=== PATIENT | female | born 1950 | race Caucasian/White ===

== ENCOUNTER 2018-09-06 10:50 | Day surgery (SDC) | payer BC, MEDICARE ==
[~2018-09-06] VITALS: Ht 157.5 cm; Wt 69.4 kg
[~2018-09-06 10:50] MED LIST: CAR3125T PO; FEXO24TA9 PO; FLUT1SPR5; GLIP-115 PO; INSUINJ37 SC; LOSA-46 PO; OME20T PO; PRAV20TA3 PO; SERT-160 PO; TRAZ50TA2 PO
[2018-09-06] MEDS ORDERED: IOHEXOL 350 MG/ML 100ML IJ ONE (11:13)
[2018-09-06] MEDS ORDERED: LIDOCAINE 2%HCL (LOCAL ANESTH.) INJ 20ML MDV ONE (11:13)
[2018-09-06] MEDS ORDERED: ANGIOMAX 250 MG VIAL IV ONE (12:26)
[2018-09-06] MEDS ORDERED: MIDAZOLAM HCL 1MG/1ML-2 ML VIAL ONE (12:27)
[2018-09-06] MEDS ORDERED: SODIUM CHL 0.9% 0 ML ONE (12:27)
[2018-09-06] MEDS ORDERED: fentaNYL CITRATE 100 MCG/2 ML VL ONE (12:27)
[2018-09-06] MEDS ORDERED: VERAPAMIL 2.5MG/ML INJ 2ML VIAL IV ONE (12:31)
[2018-09-06] MEDS ORDERED: HEPARIN SODIUM (PORCINE) 5000 UNITS/ML 1ML VIAL ONE (12:34)
== END 2018-09-06 15:10 | disposition home or self-care (01) ==
LOC: CATH 10:50
PROVIDERS: ATTEND Internal Medicine
DX: R94.39 Abnormal result of other cardiovascular function study (principal); I99.8 Other disorder of circulatory system; I25.2 Old myocardial infarction; E78.5 Hyperlipidemia, unspecified; E11.9 Type 2 diabetes mellitus without complications; I11.0 Hypertensive heart disease with heart failure; Z95.1 Presence of aortocoronary bypass graft; Z82.49 Family history of ischemic heart disease and other diseases of the circulatory system; Z79.899 Other long term (current) drug therapy
CPT/HCPCS: 93459; A6257; C1769; C1894; J1644; J2250; J3010; J7030; 99152; 99153